=== PATIENT | female | born 1960 | race Caucasian/White ===

== ENCOUNTER 2019-06-17 18:21 | Emergency (ER) | payer SELFPAY ==
--- NOTE | 2019-06-17 19:39 | RAD REPORT ---
EXAM DESCRIPTION: CT - Ct Stroke Brain Wo Cont - 06/17/2019 7:32 pm CLINICAL HISTORY: NUMBNESS CVA symptomology COMPARISON: No comparisons TECHNIQUE: All CT scans are performed using dose optimization technique as appropriate and may inclu de automated exposure control or mA/KV adjustment according to patient size. FINDINGS: No intracranial hemorrhage, hydrocephalus or extra-axial fluid collection.No areas of brai n edema or evidence of midline shift. The paranasal sinuses and mastoids are clear. The calvarium is intact. IMPRESSION: No acute intracranial abnormality. The findings were discussed with Jonathan Roth in the ER on 06/17/2019 at 7:35 p.m. by telephone.
--- NOTE | 2019-06-17 19:45 | RAD REPORT ---
EXAM DESCRIPTION: RAD - Chest Single View - 06/17/2019 7:37 pm CLINICAL HISTORY: MALAISE Chest pain. COMPARISON: <Comparisons> FINDINGS: Portable technique limits examination quality. The lungs are grossly clear. The heart is normal in size. No displaced fractures. IMPRESSION: No acute intrathoracic process suspected.
[2019-06-17 19:50] LABS: Absolute Lymphocytes (CBC) 1.3 K/uL (0.7-4.9); Basophils % 0.9 % (0-1.3); Hematocrit 45.5 % (36.0-45.0); Lymphocytes % 20.6 % (15.3-44.8); MPV 9.4 fL (7.6-11.3); RBC Red Blood Cell Count 4.72 M/uL (3.86-4.86)
[2019-06-17 19:52] LABS: Protime INR 1.04
[2019-06-17 20:13] LABS: Potassium 4.1 mmol/L (3.5-5.1)
--- NOTE | 2019-06-17 20:29 | ER ---
Nurse's Notes [facility] Name: Karen Rivera Age: 58 yrs Sex: Female : 1960 Arrival Date: 06/17/2019 Time: 18:23 Bed 8 Private MD: Diagnosis: Dysphagia following cerebral infarction Presentation: 06/17 18:25 Presenting complaint: states: was seen here 06/11 and transferred for CVA sv symptoms of left facial numbness, diplopia; dizziness (confirmed occipital CVA); discharged Sun 06/15 with no improvement of symptoms. Yesterday she started having right face and leg numbness. c/o increasing trouble swallowing meds and constipation x 9 days. Transition of care: patient was not received from another setting of care. Onset of symptoms was June 16, 2019. Risk Assessment: Do you want to hurt yourself or someone else? Patient reports no desire to harm self or others. Initial Sepsis Screen: Does the patient meet any 2 criteria? No. Patient's initial sepsis screen is negative. Does the patient have a suspected source of infection? No. Patient's initial sepsis screen is negative. Care prior to arrival: None. 18:25 Method Of Arrival: Wheelchair sv 18:25 Acuity: BISMARK 3 sv Historical: - Allergies: 18:55 PENICILLINS; ph - Home Meds: 18:55 atorvastatin 80 mg oral tab 1 tab once daily [Active]; clopidogrel 75 mg oral tab 1 tab ph once daily [Active]; meclizine 12.5 mg Oral tab 1 tabs 3 times per day [Active]; ondansetron HCl 4 mg Oral tab 1 tabs every 8 hours [Active]; pantoprazole 40 mg oral TbEC 1 tab once daily [Active]; polyethylene glycol 3350 17 gram/dose oral powd once daily [Active]; aspirin 81 mg Oral TbEC 1 tab once daily [Active]; clonazepam 0.5 mg Oral tab 1 tab nightly [Active]; - PMHx: 18:55 CVA; ph - Immunization history:: Adult Immunizations unknown. - Social history:: Smoking status: Patient/guardian denies using tobacco. - Ebola Screening: : No symptoms or risks identified at this time. Screenin:56 Abuse screen: Denies threats or abuse. Denies injuries from another. Nutritional ph screening: No deficits noted. Tuberculosis screening: No symptoms or risk factors identified. Fall Risk No fall in past 12 months (0 pts). Secondary diagnosis (15 points) CVA, IV access (20 points). Ambulatory Aid- None/Bed Rest/Nurse Assist (0 pts). Gait- Impaired (20 pts.). Mental Status- Overestimates/Forgets Limitations (15 pts.). Total Donald Fall Scale indicates High Risk Score (45 or more points). Fall prevention measures have been instituted. Side Rails Up X 2 Placed Close to Nursing Station Family Present and informed to notify staff if the need to leave the bedside As available patient and family educated on Fall Prevention Program and Strategies. 19:36 Patient has been NPO before screening. The patient is alert, able to follow commands. ak1 The patient exhibits slurred or garbled speech. Provider notified of indication for Speech Therapy consult. The patient is exhibiting difficulty speaking. The patient does not exhibit difficulty understanding words. The patient is able to swallow own secretions with no drooling or need for suction. The patient did not tolerate one teaspoon of water. Drooling, immediate coughing, gurgling, or clearing of the throat was noted. Bedside swallow screening discontinued. Patient kept NPO until cleared by Speech Therapy or Physician. Assessment: 19:36 Reassessment: Patient appears in no apparent distress at this time. General: Appears ak1 uncomfortable, slender, Behavior is calm, cooperative. Pain: Denies pain. Neuro: Level of Consciousness is awake, alert, obeys commands, lethargic, Oriented to person, place, situation, Professor Of History are weak bilaterally Moves all extremities. Weakness Gait is family stated pt has increased double vision in both eyes. pt had double vision in one eye Sunday prior to discharge from [facility]. pt unable to ambulate due to double vision, pt becomes nauseated and falls. . Speech is slurred, Reports blurred vision in bilateral eyes difficulty swallowing dizziness, weakness. Cardiovascular: Heart tones S1 S2 present Rhythm is sinus bradycardia. Respiratory: Airway is patent Respiratory effort is even, unlabored, Respiratory pattern is regular, Breath sounds are clear bilaterally. GI: No signs and/or symptoms were reported involving the gastrointestinal system. : No signs and/or symptoms were reported regarding the genitourinary system. EENT: Reports difficulty swallowing since Sunday. pt able to swallow own secretions. pt family stated pt is not eating or drinking at home due to difficulty swallowing. Derm: Reports numbness in both sides of her face. Musculoskeletal: Reports weakness in general weakness. 19:54 Reassessment: pt seen by Ingrid Moreira MD at [facility]. Diana Stanley MD ak1 recommended pt to see Gary Betancourt MD. pt called Dr. Betancourt office today and was told to take pt to ER for worsened s/s. 20:30 Reassessment: pt family chose to sign pt out AMA due to financial cost of transfer. pt ak1 and family verbalized understanding of procedure and the need for pt to be assessed by neurology. Dr. Miller spoke with pt, pt's and family about AMA and the need for assessment by neurology. Vital Signs: 18:36 BP 158 / 79; Pulse 53; Resp 16; Temp 98.1; Pulse Ox 99% ; sv 18:55 Weight 58.97 kg; Height 6 ft. 2 in. (187.96 cm); ph 19:53 BP 168 / 82; Pulse 46; Resp 14; Pulse Ox 100% on R/A; ak1 19:53 ak1 20:15 BP 167 / 83; Pulse 49; Resp 14; Pulse Ox 99% on R/A; ak1 18:55 Body Mass Index 16.69 (58.97 kg, 187.96 cm) ph 19:53 FSBG 91 ak1 ED Course: 18:23 Patient arrived in ED. mr 18:36 Triage completed. sv 18:55 Arm band placed on Patient placed in an exam room, on a stretcher. ph 18:56 Patient has correct armband on for positive identification. Bed in low position. Call ph light in reach. Side rails up X 1. 19:17 Katarina Guzman, RN is Primary Nurse. ak1 19:27 Radiology exam delayed due to getting labs drawn by Katarina Neff. nj 19:[address] via stretcher. nj 19:31 Adolph Miller MD is Attending Physician. tw4 19:31 CT completed. Patient tolerated procedure well. Patient moved back from CT. nj 19:33 CT Stroke Brain w/o Contrast In Process Unspecified. EDMS 19:36 radiation monitor on. Pulse ox on. NIBP on. Door closed. Lights dimmed. Warm blanket ak1 given. 19:38 Stroke CXR 1 View In Process Unspecified. EDMS 19:43 Initial lab(s) drawn, by me, sent to lab. EKG done, by ED staff, reviewed by Adolph Miller MD. Inserted saline lock: 22 gauge in left antecubital area, using aseptic technique. Blood collected. Patient maintains SpO2 saturation greater than 95% on room air. 20:31 No provider procedures requiring assistance completed. IV discontinued, intact, ak1 bleeding controlled, No redness/swelling at site. Pressure dressing applied. Administered Medications: No medications were administered Outcome: 20:31 AMA AMA form signed ak1 20:31 Condition: good 20:31 Instructed on discharge instructions, follow up and referral plans. the need for transfer, Demonstrated understanding of follow-up care. 20:32 Patient left the ED. ak1 Signatures: Dispatcher [employer] EDMS Veronica Garcia RN RN , Sonali mr Guzman, Katarina, RN RN [email or web address] Clarissa Nava RN RN [facility], Adolph Bravo MD MD tw4
--- NOTE | 2019-06-17 20:29 | EDPHYS ---
Physician Documentation [facility] Name: Karen Rivera Age: 58 yrs Sex: Female : 1960 Arrival Date: 06/17/2019 Time: 18:23 Bed 8 Private MD: ED Physician Adolph Miller HPI: 06/17 20:03 This 58 yrs old Female presents to ER via Wheelchair with complaints of tw4 Numbness Of Face. 20:03 The patient's problem is reported as dysphagia, difficulty handling secretions, tw4 drooling. Onset: The symptoms/episode began/occurred today. Duration: This was a single incident. Context: the episode(s) was witnessed. The symptoms are alleviated by nothing. The symptoms are aggravated by nothing. Severity of symptoms: At their worst the symptoms were moderate in the emergency department the symptoms are unchanged. The patient has not experienced similar symptoms in the past. Historical: - Allergies: 18:55 PENICILLINS; ph - Home Meds: 18:55 atorvastatin 80 mg oral tab 1 tab once daily [Active]; clopidogrel 75 mg oral tab 1 tab ph once daily [Active]; meclizine 12.5 mg Oral tab 1 tabs 3 times per day [Active]; ondansetron HCl 4 mg Oral tab 1 tabs every 8 hours [Active]; pantoprazole 40 mg oral TbEC 1 tab once daily [Active]; polyethylene glycol 3350 17 gram/dose oral powd once daily [Active]; aspirin 81 mg Oral TbEC 1 tab once daily [Active]; clonazepam 0.5 mg Oral tab 1 tab nightly [Active]; - PMHx: 18:55 CVA; ph - Immunization history:: Adult Immunizations unknown. - Social history:: Smoking status: Patient/guardian denies using tobacco. - Ebola Screening: : No symptoms or risks identified at this time. ROS: 20:03 Constitutional: Negative for fever, chills, and weight loss, Eyes: Negative for injury, tw4 pain, redness, and discharge, Cardiovascular: Negative for chest pain, palpitations, and edema, Respiratory: Negative for shortness of breath, cough, wheezing, and pleuritic chest pain, Abdomen/GI: Negative for abdominal pain, nausea, vomiting, diarrhea, and constipation, Back: Negative for injury and pain, MS/Extremity: Negative for injury and deformity, Skin: Negative for injury, rash, and discoloration. Exam: 20:03 Radiologist reports: negative CT tw4 20:03 Constitutional: This is a well developed, well nourished patient who is awake, alert, and in no acute distress. Head/Face: Normocephalic, atraumatic. Chest/axilla: Normal chest wall appearance and motion. Nontender with no deformity. No lesions are appreciated. Cardiovascular: Regular rate and rhythm with a normal S1 and S2. No gallops, murmurs, or rubs. Normal PMI, no JVD. No pulse deficits. Respiratory: Lungs have equal breath sounds bilaterally, clear to auscultation and percussion. No rales, rhonchi or wheezes noted. No increased work of breathing, no retractions or nasal flaring. Abdomen/GI: Soft, non-tender, with normal bowel sounds. No distension or tympany. No guarding or rebound. No evidence of tenderness throughout. MS/ Extremity: Pulses equal, no cyanosis. Neurovascular intact. Full, normal range of motion. 20:03 Head/face: Exam is negative for 20:03 Eyes: Nystagmus: nystagmus with fast component noted, bilaterally. 20:03 Neuro: Orientation: is normal, to person, place \T\ time. Mentation: is normal, Memory: is normal, Cranial nerves: CN II- XII are normal as tested, Cerebellar function: normal finger to nose testing, heel to burdick testing is normal, the patient is unable to track right heel to left burdick, the patient is unable to track left heel to right burdick, Motor: is normal, Sensation: is normal, Gait: not tested. Babinski testing is not performed, seizure activity, is not displayed by the patient, Abnormal movements: there are no abnormal movements. Vital Signs: 18:36 BP 158 / 79; Pulse 53; Resp 16; Temp 98.1; Pulse Ox 99% ; sv 18:55 Weight 58.97 kg; Height 6 ft. 2 in. (187.96 cm); ph 19:53 BP 168 / 82; Pulse 46; Resp 14; Pulse Ox 100% on R/A; ak1 19:53 ak1 20:15 BP 167 / 83; Pulse 49; Resp 14; Pulse Ox 99% on R/A; ak1 18:55 Body Mass Index 16.69 (58.97 kg, 187.96 cm) ph 19:53 FSBG 91 ak1 MDM: 19:31 Patient medically screened. tw4 06/17 19:19 Order name: Basic Metabolic Panel ak1 06/17 19:19 Order name: CBC with Diff; Complete Time: 20:00 ak 06/17 20:00 Interpretation: Normal except: HGB 15.2; HCT 45.5. tw4 06/17 19:19 Order name: Protime (+inr); Complete Time: 20:00 ak 06/17 20:00 Interpretation: Within normal limits: PT 12.2. tw4 06/17 19:19 Order name: Ptt, Activated; Complete Time: 20:00 [facility] 06/17 20:00 Interpretation: Within normal limits: PTT 31.4. tw4 06/17 19:19 Order name: CT Stroke Brain w/o Contrast; Complete Time: 20:00 [facility] 06/17 19:41 Order name: Glucose, Ancillary Testing; Complete Time: 20:00 [facility] 06/17 19:19 Order name: Stroke CXR 1 View; Complete Time: 20:00 [facility] 06/17 19:19 Order name: EKG; Complete Time: 19:21 ak 06/17 19:19 Order name: Accucheck; Complete Time: 19:34 06/17 19:19 Order name: Cardiac monitoring; Complete Time: 19:34 06/17 19:19 Order name: EKG - Nurse/Tech; Complete Time: 19:35 [facility] 06/17 19:19 Order name: IV Saline Lock; Complete Time: 19:35 06/17 19:19 Order name: Labs collected and sent; Complete Time: 19:35 ak 06/17 19:19 Order name: NPO; Complete Time: 19:35 ak 06/17 19:19 Order name: O2 Per Protocol; Complete Time: 19:35 [facility] 06/17 19:19 Order name: O2 Sat Monitoring; Complete Time: 19:35 [facility] 06/17 19:19 Order name: Stroke Swallow Screen; Complete Time: 19:35 ak1 Administered Medications: No medications were administered Disposition: 06/17/19 20:28 Patient has left against medical advice. Impression: Dysphagia following cerebral infarction. - Patients states they are going to Home. - Condition is Stable. - Discharge Instructions: Dysphagia, Aspiration Precautions, Adult, Dysphagia Diet Level 1, Pureed. Follow up: Private Physician; When: Upon discharge from the Emergency Department; Reason: Recheck today's complaints, Continuance of care. - Problem is an ongoing problem. - Symptoms have worsened. Signatures: Dispatcher [employer] EDMS Katarina Guzman RN RN ak1 Clarissa Nava RN RN Adolph Miller MD MD tw4 Corrections: (The following items were deleted from the chart) 20:32 20:28 06/17/2019 20:28 Patients has left against medical advice. Impression: Dysphagia ak1 following cerebral infarction. Patient states they are going to Home. Condition is Stable. Follow up: Private Physician; When: Upon discharge from the Emergency Department; Reason: Recheck today's complaints, Continuance of care. Problem is an ongoing problem. Symptoms have worsened. tw4
[2019-06-17 22:18] VITALS: TEMP 98.1
[2019-06-17 22:20] VITALS: BP 167/83; O2SAT 99
--- NOTE | 2019-06-18 09:14 | EKG ---
Test Date: 2019-06-17 Test Time: 19:20:00 Data Processing Manager: LEE MEASUREMENT RESULTS: Intervals: Rate: 45 MN: 116 QRSD: 98 QT: 484 QTc: 418 Rowley: P: 75 MN: 116 QRS: 82 T: 76 INTERPRETIVE STATEMENTS: Sinus bradycardia Otherwise normal ECG No previous ECG available for comparison Electronically Signed On 06-18-19 09:13:28 CDT by Prashant Galvin
== END 2019-06-17 20:32 | disposition left against medical advice (07) ==
LOC: ER 18:21
DX: I69.391 Dysphagia following cerebral infarction (principal); R13.10 Dysphagia, unspecified; Z88.0 Allergy status to penicillin
CPT/HCPCS: 36415; 70450; 71045; 80048; 82947; 85025; 85610; 85730; 93005; 99285